=== PATIENT | female | born 1975 | race Caucasian/White ===

== ENCOUNTER 2021-06-25 15:40 | Emergency (ER) | payer OTHER ==
[2021-06-25 16:23] VITALS: BP 123/82; PULSE 100; TEMP 98; BMI 34.2
[2021-06-25] MEDS ORDERED: FAMOTIDINE 20 MG TABLET PO ONE (17:05)
[2021-06-25] MEDS ORDERED: METOCLOPRAMIDE HCL 10 MG TABLET (FP) PO ONE ×2 (17:05→17:32)
[2021-06-25] MEDS ORDERED: MAG HYDROX/AL HYDROX/SIMETH 30 ML UNIT-DOSE CUP PO ONE (17:05)
[2021-06-25] MEDS ORDERED: FAMOTIDINE 20 MG TABLET ONE (17:32)
[2021-06-25] MEDS ORDERED: MAG HYDROX/AL HYDROX/SIMETH 30 ML UNIT-DOSE CUP ONE (17:32)
[2021-06-25 18:42] LABS: BASO % 0.4 % (0-2.0); HEMOGLOBIN 13.9 GM/dL (10.7-15.3); LYMPH % 22.9 % (8-40); MCH 30.8 pg (25.7-33.7); MEAN CELL VOLUME 90.4 fl (80-96); MEAN PLT VOLUME 7.4 fl (7.5-11.1); MONO % 7.5 % (3.8-10.2); NEUT % 68.2 % (42.8-82.8); PLATELET COUNT 301 10^3/uL (134-434); RBC 4.53 M/mm3 (3.60-5.2); RDW 14.1 % (11.6-15.6); WHITE BLOOD COUNT 9.7 K/mm3 (4.0-10.0)
[2021-06-25 18:43] LABS: URINE APPEARANCE CLEAR; URINE BILIRUBIN NEGATIVE (NEGATIVE); URINE COLOR YELLOW; URINE GLUCOSE (UA) NEGATIVE (NEGATIVE); URINE KETONE NEGATIVE (NEGATIVE); URINE LEUK ESTERASE NEGATIVE (NEGATIVE); URINE NITRITE NEGATIVE (NEGATIVE); URINE PROTEIN NEGATIVE (NEGATIVE); URINE UROBILINOGEN 0.2 mg/dL (0.2-1.0)
[2021-06-25 19:02] LABS: CALCIUM 9.4 mg/dL (8.5-10.1)
[2021-06-25 19:03] LABS: ALBUMIN 3.8 g/dl (3.4-5.0); BLOOD UREA NITROGEN 12.7 mg/dL (7-18)
[2021-06-25 19:06] LABS: CREATININE 0.9 mg/dL (0.55-1.3)
[2021-06-25 19:07] LABS: BILIRUBIN,TOTAL 0.2 mg/dL (0.2-1); TOT PROT 7.6 g/dl (6.4-8.2)
== END 2021-06-25 20:09 | disposition home or self-care (01) ==
LOC: JER 15:40
DX: R10.13 Epigastric pain (principal)
CPT/HCPCS: 36415; 76705-TC; 80053; 81003; 83690; 85025; 99284-25